=== PATIENT | female | born 1960 | race Caucasian/White ===

== ENCOUNTER → 2023-12-11 | Outpatient (CLI) | payer BC | END | disposition home or self-care (01) | LOC: RAH 13:40 | PROVIDERS: ATTEND Obstetrics & Gynecology | DX: Z12.31 Encounter for screening mammogram for malignant neoplasm of breast (principal); R92.333 Mammographic heterogeneous density, bilateral breasts | CPT/HCPCS: 77067 ==

== ENCOUNTER → 2025-01-19 | Outpatient (CLI) | payer BC | END | disposition home or self-care (01) | LOC: RAH 13:16 | PROVIDERS: ATTEND Obstetrics & Gynecology | DX: Z12.31 Encounter for screening mammogram for malignant neoplasm of breast (principal) | CPT/HCPCS: 77067 ==